=== PATIENT | female | born 1950 | race Caucasian/White ===

== ENCOUNTER → 2017-05-01 | Day surgery (SDC) | payer OTHER ==
[2017-04-23 10:15] VITALS: Ht 157.5 cm; Wt 70.5 kg
[~2017-05-01] VITALS: Ht 157.5 cm; Wt 70.5 kg
[~2017-05-01] MED LIST: ACETAMINOPHEN 325 MG TAB PO PRN; ATOR10TA82 PO; ATROPINE SULFATE 0.1 MG/ML 5ML SYR IV PRN; BACITRACIN 50000 UNIT VIAL ONE; BNC20 PO; BUPIVACAINE 0.25% 30 ML VIAL ONE; CEFAZOLIN SOD 1 GM VIAL ONE; CHOL1TAB42 PO; CLINDAMYCIN PHOS 150 MG/ML 2 ML VIAL IV SCH; CLOP1TAB15 PO; COEN1CAP7 PO; EpHEDrine SULFATE INJ 50 MG/ML AMP IV PRN; EpHEDrine SULFATE INJ 50 MG/ML AMP ONE; FENTANYL CITRATE INJ 50 MCG/1 ML 2 ML VIAL IV PRN; FENTANYL CITRATE INJ 50 MCG/1 ML 2 ML VIAL ONE; GENTAMICIN SULFATE 40 MG/ML 2 ML VIAL ONE; GENTIAN VIOLET TOP SOLN DROP CHARGE ONE; LABETALOL HCL IV 5 MG/ML 20ML IV ONE; LACTATED RINGER'S 1000ML 1,000 ML IV SCH; LEVO100T PO; LIDOCAINE HCL 2% 2 ML VIAL (20MG/ML) ONE; LIDOCAINE/EPINEPHRINE 1% INJ 50 ML VIAL ONE; METOCLOPRAMIDE HCL INJ 5 MG/ML 2 ML VIAL IV PRN; MIDAZOLAM HCL 1 MG/ML 2ML VIAL ONE; NURSING VERBAL MED ORDER ONE; ONDANSETRON INJ 2 MG/ML 2 ML VIAL IV PRN; ONDANSETRON INJ 2 MG/ML 2 ML VIAL ONE; OXYCODONE/ACETAMINOPHEN 5-325 TAB PO PRN; PRAM0.256 PO; PROPOFOL IV EMULSION 10 MG/ML 20 ML VIAL IV ONE; SCOPOLAMINE 1.5 MG TDSY TD ONE; SODIUM CHLORIDE 0.9% 1000ML 1,000 ML IV SCH; SODIUM CHLORIDE 0.9% INJ 10 ML VIAL ONE
--- NOTE | 2017-05-01 09:24 | History & Physical Bridge - [place] ---
H&P Re-Evaluation Bridge Note: I have examined the patient, reviewed the History & Physical and in the interval since the performance of the History & Physical I have noted the following changes of clinical significance: No changes noted
--- NOTE | 2017-05-01 12:50 | Discharge Instructions ---
Discharge Instructions Date of Service May 01, 2017. Admission Reason for Admission: Encounter For Breast Exam Following Mastectomy Discharge Discharge Diagnosis / Problem: breast implant rupture Discharge Goals Goal(s): Decrease discomfort Activity Recommendations Activity Limitations: per Instructions/Follow-up section ACTIVITY RECOMMENDATIONS: __Normal activities _x_No bending, lifting or straining __No driving __Driving allowed when you are off pain medications _x_Walking permitted __You should have help at home for ___ days DRESSINGS: __No dressings required _x_Keep dressings dry/in place until 2 days post-op. You may remove bra and gauze at 2 days after surgery, but must replace bra and continue to wear 24/7 for 6 weeks after surgery __Remove dressings ___ and leave dressings off __Apply ice ___ days __Remove dressings and reapply garment __Apply antibiotic ointment (Bacitracin, Neosporin, etc) to wounds 3-4 times/ day for 10 days BATHING: _x_Keep dressings dry _x_Sponge bathing permitted away from breasts. You may not shower while drain is in place. __Showering permitted _x_No swimming, hot tubs or soaking in a tub MEDICATIONS: Resume previous medications unless instructed otherwise by your surgeon. _x_Do not use aspirin, Motrin, Advil or Ibuprofen as these may promote bleeding. Please use Tylenol. _x_Prescription(s) provided: antibiotics and pain medication were provided at your last office visit. Begin antibiotics today. Remain on antibiotics until drain is removed. Call the office if you need a refill. OTHER INSTRUCTIONS: _x_Record drain output 2-3 times per day. Call the office when output is less than 10/cc in 24 hours. SPECIAL CARE INSTRUCTIONS: * It is normal to have a mild fever after surgery. If your temperature is higher than 101.5 degrees F, please call the office at [phone]. * Constipation is a typical side effect of pain medication. An over-the- counter stool softener will help relieve this. * Leaking around surgical drains may occur and should not cause concern. Sometimes these drains become clogged. If this happens, remove the bulb and milk the clot out of the tube, then replace the bulb. * Drainage from wounds after liposuction is normal and should be expected. Garments will become soiled. You should protect furniture and bedding. This drainage should mostly subside within 2-3 days. Leave garments in place unless instructed to remove them. * If you have unusual drainage from a wound or are concerned you have an infection or have any questions or concerns, please call the office at [phone]. FOLLOW UP VISIT: If not already scheduled, please call the office, , when you return home after surgery to schedule an appointment to be seen in __6_ days. . Current Hospital Diet Patient's current hospital diet: Discharge Diet Recommended Diet: Regular Diet Procedures Procedures Performed: Bilateral Breast Plant Exchange Pending Studies Studies pending at discharge: yes List of pending studies: pathology Medical Emergencies . Who to Call and When: Medical Emergencies: If at any time you feel your situation is an emergency, please call 911 immediately. . Non-Emergent Contact Non-Emergency issues call your: Primary Care Provider, Surgeon . "Provider Documentation" section prepared by Elsy Raymond. . VTE Core Measure Inpt VTE Proph given/why not?: SCD's [place] Drug Monitoring Program Search Results: no issues identified
--- NOTE | 2017-05-01 12:56 | [facility] Post Operative Brief Note ---
Immediate Operative Summary Operative Date May 01, 2017. Pre-Operative Diagnosis Status Post Bilateral Breast Silicone Implants Post-Operative Diagnosis Same Procedure(s) Performed Bilateral Breast Implant Exchange, bilateral capsulectomies Surgeon Dr. Matt Lam Nature Photographer Surgeon(s) Matt Raymond PA-C Estimated Blood Loss 50 ml Findings intact left implant, serous fluid in capsule; frankly ruptured right implant with capsule 5 mm thick, densely adherent posteriorly, with evidence of chronic inflammation Specimens D. Left Breast Fluid Encapsule. Test for ALCL E. Right Breast Scar Drains JPx1 right breast Anesthesia GET Complication(s) None Disposition Recovery Room / PACU
--- NOTE | 2017-05-01 14:41 | Anesthesia Progress Nt - [facility] ---
Anesthesia Post Op Note Date & Time May 01, 2017 at 14:41 Vital Signs Pain Intensity: 5 Vital Signs Past 12 Hours Date Time Temp Pulse Resp B/P (MAP) Pulse Ox O2 Delivery O2 Flow Rate FiO2 05/01/17 14:12 70 10 05/01/17 14:12 77 10 94 05/01/17 14:11 178/90 05/01/17 14:07 78 15 05/01/17 14:07 78 15 97 05/01/17 14:06 166/88 05/01/17 14:02 82 12 100 05/01/17 14:02 81 12 05/01/17 14:01 168/91 05/01/17 13:58 36.8 85 12 164/88 100 Diffusion Mask 05/01/17 13:57 70 12 05/01/17 13:57 71 12 100 05/01/17 13:56 72 11 164/88 100 05/01/17 13:56 73 11 05/01/17 13:51 85 12 166/95 100 05/01/17 13:51 83 12 05/01/17 13:50 73 14 100 05/01/17 13:50 76 14 05/01/17 13:46 178/94 05/01/17 13:45 82 17 100 05/01/17 13:45 82 17 05/01/17 13:41 172/93 05/01/17 13:40 79 12 05/01/17 13:40 79 12 100 05/01/17 13:36 177/94 05/01/17 13:35 78 9 100 05/01/17 13:35 78 9 05/01/17 13:34 78 13 99 05/01/17 13:34 78 13 05/01/17 13:31 180/112 05/01/17 13:29 84 12 100 05/01/17 13:29 84 12 05/01/17 13:26 185/96 05/01/17 13:24 90 14 100 05/01/17 13:24 89 14 05/01/17 13:21 178/91 05/01/17 13:19 80 18 100 05/01/17 13:19 81 18 05/01/17 13:16 167/96 05/01/17 13:14 99 18 05/01/17 13:14 99 18 100 05/01/17 13:11 172/89 05/01/17 13:10 182/102 05/01/17 13:09 94 13 05/01/17 13:09 93 13 100 05/01/17 13:06 177/112 05/01/17 13:05 191/115 05/01/17 13:04 114 05/01/17 13:04 36.3 108 12 177/112 100 Diffusion Mask 6 05/01/17 13:04 114 100 05/01/17 08:15 68 16 181/99 (126) 99 Room Air Notes Mental Status: alert / awake / arousable, participated in evaluation Pt Amnestic to Procedure: Yes Nausea / Vomiting: adequately controlled Pain: adequately controlled Airway Patency, RR, SpO2: stable & adequate BP & HR: stable & adequate Hydration State: stable & adequate Anesthetic Complications: no major complications apparent
[2017-05-01 15:48] VITALS: BP 136/84; PULSE 67; TEMP 37.2; O2SAT 96
--- NOTE | 2017-05-02 17:46 | OPERATIVE REPORT ---
DATE OF OPERATION: 05/02/2017 PREOPERATIVE DIAGNOSIS: Status post bilateral mastectomy with implant based reconstruction. POSTOPERATIVE DIAGNOSIS: Same. PROCEDURE: Bilateral breast implant exchange with capsulectomies. SURGEON: Dr. Dianne Lam. SWEAT BAND SEPARATOR: Elsy Raymond PA-C. ANESTHESIA: General. COMPLICATIONS: None. INDICATION FOR THE PROCEDURE: The patient is a 66-year-old female who underwent bilateral mastectomy and reconstruction in 2000 at [facility] by Dr. Dhaliwal. They were dual lumen silicone implants. She was uncertain what size implant was in place. She did not have any symptoms related to her implants, but several years ago, had a stroke and underwent a chest CT and MRI, which showed a possible implant rupture bilaterally. Given her stroke history and need for anticoagulation, her neurologist suggested she have her implants replaced while healthy enough to do so. She states following her stroke, she was evaluated by her previous plastic surgeon in [place] in 2012, who felt the implants were okay, but did suggest that should be replaced. BRIEF DESCRIPTION OF THE PROCEDURE: Risks, benefits, and alternatives of the procedure were explained to the patient, who agreed and signed consent. She was identified and marked in the preoperative holding area. She was brought to the operating room, where she was positioned supine and placed under anesthesia without incident. Surgical site was prepped and draped sterilely. A time-out procedure was performed. I began with the left side. I used the lateral aspect of her mastectomy incision in order to gain access. This was marked in an elliptical fashion in order to attempt to improve a contour deformity, which was present. She also had a contour deformity on the medial breast that she desired improvement of and she hoped to have this corrected if desired. 1% lidocaine with epinephrine was used to anesthetize the elliptical incision on the lateral left breast. A 15 blade scalpel was used to make the incision into the underlying subcutaneous fat. Incision was deepened using electrocautery. Scar was excised and sent for pathology. Dissection continued until the capsule was identified. There was noted to be some mild thickening of the capsule on the left in various locations. Mild calcification noted in the anterior left breast. The pocket was noted to be quite large with the implant displaced laterally. In addition, the inframammary fold was felt to be significantly low. As a result, anterior capsulectomy was performed on the left using electrocautery and an Allis clamp. The capsule was opened to access the implant and the implant was removed and noted to be intact. The posterior aspect of the implant was labeled [place] 540 mL. Due to the patient's concerns about contour of the breast, capsulorrhaphy was performed using 0 Ethibond [id number] sutures along the inframammary fold and lateral breast pocket. A 550 mL high profile [place] smooth round silicone gel implant was placed into the pocket and noted to provide good shape to the breast with ability to close the pocket. The sizer was removed and the pocket was irrigated with saline followed by triple antibiotic irrigation. Wound was packed and 0.25% Marcaine plain was instilled. A similar procedure was undertaken on the right side. However, upon accessing the capsule, there was noted to be a very thick capsule with well-developed plane and anteriorly, this was dissected with the implant still in the capsule. However, I did attempt en bloc resection of the capsule and implant in order to prevent leaking of the silicone, but this was impossible to perform and therefore, a thinner area of capsule was identified and incised with resulting oozing silicone gel. The gel was removed as well as the frankly ruptured implant shell. I continued to proceed with a capsulectomy and this was performed posteriorly to the greatest extent possible. The pocket was irrigated using a Betadine soap followed by saline. There was noted to be granulomatous material in the posterior aspect of the capsule, which was debrided using a curette. The posterior capsule was in some locations as much as 5 mm thick and very firm. I could not feel the entire posterior capsule off of the chest wall. As a result, this was debrided and cauterized and the wound was copiously irrigated until all remnants of silicone appeared to have been removed. Triple antibiotic irrigation was used. Again, capsulorrhaphy was performed to close down the inframammary fold and lateral breast pocket using 0 Ethibond [id number] sutures. Following this, a drain was placed in the right side only. 0.25% Marcaine plain was instilled. Two identical 540-mL smooth round high profile [place] cohesive gel implants were selected and placed into the pocket. Wound was reapproximated using 2-0 Vicryl suture to reapproximate soft tissue and deep dermis followed by a 3-0 PDS interrupted dermal sutures and 3-0 Monocryl running subcuticular suture. A similar closure was performed on the right. Dermabond Prineo was applied to both incisions. Dry dressings and a surgical bra were placed. The procedure was tolerated well. Estimated blood loss was about 50 mL. The patient was awakened and transferred to in satisfactory condition. Elsy Raymond was present and scrubbed throughout the entire procedure and was instrumental in retraction during dissection of the capsule and capsulorrhaphy as well as assisting in simultaneous wound closure. I attest to the content of the Intraoperative Record and any orders documented therein. Any exception s are noted below.
== END | disposition home or self-care (01) ==
LOC: X.SURG 07:46
PROVIDERS: ATTEND Plastic Surgery
DX: Z42.1 Encounter for breast reconstruction following mastectomy (principal); Z90.13 Acquired absence of bilateral breasts and nipples; Z85.3 Personal history of malignant neoplasm of breast; Z98.82 Breast implant status; I10 Essential (primary) hypertension; E78.00 Pure hypercholesterolemia, unspecified; E07.9 Disorder of thyroid, unspecified; Z79.899 Other long term (current) drug therapy